=== PATIENT | male | born 1985 | race Caucasian/White ===

== ENCOUNTER 2017-12-29 11:02 | Inpatient (IN) | payer MEDICAID ==
[2017-12-29] MEDS ORDERED: NS 1,000 ML IV ONE (11:58)
[2017-12-29] MEDS ORDERED: VANCOMYCIN 1.25 GM in NS 250 ML IV ONE (13:24)
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
[2017-12-29] MEDS ORDERED: ACETAMINOPHEN 325 MG TAB PO ONE (13:57)
[2017-12-29] MEDS ORDERED: IBUPROFEN 600 MG TAB PO ONE (13:58)
[2017-12-29] MEDS: VANCOMYCIN 1 GM in NS 250 ML IV ONE ×2 (14:43→14:48)
[2017-12-29] MEDS ORDERED: ONDANSETRON 4 MG/2 ML VIAL IVP PRN (16:17)
[2017-12-29] MEDS ORDERED: ACETAMINOPHEN 325 MG TAB PO PRN (16:17)
[2017-12-29] MEDS ORDERED: ONDANSETRON DISINTEGRATING 4 MG TAB PO PRN (16:17)
[2017-12-29] MEDS ORDERED: ALTEPLASE 2 MG VIAL IVP PRN (16:34)
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
[2017-12-29] MEDS ORDERED: IBUPROFEN 600 MG TAB PO PRN (17:56)
[2017-12-29] MEDS ORDERED: LORazepam 1 MG TAB PO PRN (17:56)
[2017-12-29] MEDS: oxyCODONE IR 5 MG TAB PO PRN ×2 (17:58→22:45)
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
[2017-12-29] MEDS ORDERED: valACYclovir 500 MG TAB PO PRN (18:44)
[2017-12-29 19:21] LABS: HEPATITIS C ANTIBODY TOTAL REACTIVE (NEGATIVE); HIV TYPE 1 AND 2 NEGATIVE (NEGATIVE)
[2017-12-29] MEDS: D5W IV SCH (20:59)
[2017-12-29] MEDS: ACYCLOVIR IV SCH (20:59)
[2017-12-29] MEDS: GABAPENTIN 300 MG CAP PO SCH (21:05)
[2017-12-30] MEDS: ACYCLOVIR IV SCH ×3 (05:00→21:42)
[2017-12-30] MEDS: D5W IV SCH ×3 (05:00→21:42)
[2017-12-30] MEDS: oxyCODONE IR 5 MG TAB PO PRN ×2 (05:08→09:27)
--- NOTE | 2017-12-30 07:18 | PDMN ---
Medical Necessity Medical necessity: Pt meets IP criteria per MD; est los >2 mn for eval/tx of acute shingles infection; admit for further monitoring, IV Acyclovir & ID consult; hx recent LUE cellulitis, long-standing IV heroin abuse, MRSA; per H&P & order 12/29/17
[2017-12-30] MEDS: GABAPENTIN 300 MG CAP PO SCH ×2 (09:27→21:42)
[2017-12-30] MEDS: MULTIVITAMINS 1 EACH TAB PO SCH (09:28)
[2017-12-30] MEDS: ENOXAPARIN 40 MG/0.4 ML SYR SC SCH (10:44)
[2017-12-30] MEDS ORDERED: HYDROmorphONE/DILAUDID 1 MG/ML INJ IVP PRN (11:08)
[2017-12-30] MEDS ORDERED: BISACODYL 10 MG SUPP PR PRN (11:09)
[2017-12-30] MEDS ORDERED: LACTULOSE 20 GM/30 ML UDCUP PO PRN (11:09)
[2017-12-30] MEDS ORDERED: POLYETHYLENE GLYCOL 3350 17 GM PKT PO PRN (11:09)
[2017-12-30] MEDS ORDERED: MAGNESIUM HYDROXIDE 30 ML UDCUP PO PRN (11:09)
[2017-12-30] MEDS: HYDROmorphONE/DILAUDID 2 MG TAB PO PRN ×3 (11:27→21:41)
[2017-12-30] MEDS: SENNOSIDES/DOCUSATE SODIUM TAB PO SCH ×2 (11:28→21:42)
--- NOTE | 2017-12-30 13:14 | PCMIDPN ---
Assessment/Plan: Assessment: Vesicular rash central forehead with lesions not approximate to the eyes. Patient also has scattered lesions in the left naris and the right ear. Pain control is not very good at present. Hospitalist will increase pain medicine dosage. No change in appearance of rash at this point. PCRs are pending. Meanwhile continue IV acyclovir. Patient got a PICC line earlier today. Plan: 1. Continue IV acyclovir. 2. Follow appearance of facial rash. 3. Follow up on laboratory PCRs for VZV and HSV. 12/30/17 13:11 Subjective: Patient is resting comfortably in his hospital bed. His is at his bedside. He reports no fevers or chills. Pain control is marginal. Continues to have facial and periorbital swelling. Objective: Acyclovir # 2 Vital Signs Temp Pulse Resp BP Pulse Ox 36.5 C 90 18 140/92 H 98 12/30/17 09:21 12/30/17 09:21 12/30/17 09:21 12/30/17 09:21 12/30/17 09:21 Microbiology 12/29/17 14:50 Gram Stain - Final Face - Swab Laboratory Results 12/30/17 04:51 12/30/17 04:51 12/29/17 12/30/17 12/31/17 05:59 05:59 05:59 Intake Total 1500 Balance 1500 - Physical Exam General Appearance: WD/WN, alert, no apparent distress, thin, non-toxic EENT: other (Right ear pinna lesion. Left nares lesion.), No normal ENT inspection Respiratory: lungs clear, normal breath sounds, No respiratory distress Cardiac/Chest: regular rate, rhythm, No tachycardia Skin: normal color, warm/dry, No rash Neuro/Psych: alert, normal mood/affect, oriented x 3 ICD10 Worksheet Patient Problems: Problems Problem Status Onset Facial cellulitis Acute History of MRSA infection Acute IV drug abuse Acute
[2017-12-30] MEDS ORDERED: FLU VACC QS 2017-18 (3YR+)/PF 0.5 ML SYR (FLUARIX QUAD) IM ONE (14:00)
--- NOTE | 2017-12-30 16:27 | ASMTCMCOM ---
CM Note CM Note Notes: Pt here w/facial rash, receiving IV acyclovir. Pt has hx of IV drug abuse. Pt lives at home w/signif other. DC needs not clear yet. CM should offer resources for drug rehab prior to dc. Date Signed: 12/30/2017 04:26 PM Electronically Signed By:Calli Yee RN
--- NOTE | 2017-12-30 16:33 | HOSPPROG ---
Hospitalist Progress Note Assessment/Plan: Assessment: 32-year-old male presents with suspected disseminated HSV Plan: 1. Suspected disseminated HSV. Evidenced by vesicular lesions with erosions over the mid forehead, left nares, right ear, which are painful out of proportion to their appearance, highly suspicious for neuropathic pain from HSV -HSV and VZV currently both pending -discussed with Dr. Ethan Queen, he recommends ongoing treatment with IV acyclovir via PICC line and does not recommend ophthalmological evaluation at this time as the patient does not appear to have any ocular symptoms and the present time without said symptoms there would be no changes in current management -continue to monitor serum creatinine on IV acyclovir 2. IV drug use. Active, recent, currently monitoring for any signs of withdrawal -HIV negative, hepatitis C virus positive -patient will be unsafe to discharge from hospital with IV line, if patient attempts to leave AMA, remove PICC line 3. Hepatitis-C virus. Based on screening test, will defer to Infectious Disease whether we should get total viral count verses defer to the outpatient infectious disease setting 4. Facial pain. Adjust pain medication to oral and IV as needed Dilaudid, bowel regimen ordered Diet. Regular next prophylaxis. Low risk, SCDs Code. Full Disposition. Anticipated discharge uncertain, pending clinical improvement of above. Subjective: Patient reports ongoing uncontrolled pain on his face, not responding oxycodone appropriately Objective: Vital Signs Temp Pulse Resp BP Pulse Ox 36.7 C 82 18 137/89 H 94 12/30/17 16:15 12/30/17 16:15 12/30/17 16:15 12/30/17 16:15 12/30/17 16:15 Microbiology 12/29/17 14:50 Gram Stain - Final Face - Swab Laboratory Results 12/30/17 04:51 12/30/17 04:51 12/29/17 12/30/17 12/31/17 05:59 05:59 05:59 Intake Total 1500 Balance 1500 - Physical Exam Constitutional: chronically ill appearing, uncomfortable, No not in pain ( Moderate) Ears, Nose, Mouth, Throat: other (No oral lesions) Cardiovascular: regular rate and rhythym, no murmur, rub, or gallop, No edema Respiratory: no respiratory distress, no rales or rhonchi, clear to auscultation Gastrointestinal: normoactive bowel sounds, soft, non-tender abdomen, no palpable masses, No distension Skin: other (This a killer lesions with erosions on the central forehead, left nares, right ear, left-sided perioral) Neurologic: AAOx3, sensation intact bilaterally, CN II-XII Intact, No weakness Psychiatric: interacting appropriately, not anxious, not encephalopathic, thought process linear ICD10 Worksheet Patient Problems: Problems Problem Status Onset Facial cellulitis Acute IV drug abuse Acute History of MRSA infection Acute
[2017-12-31] MEDS: HYDROmorphONE/DILAUDID 2 MG TAB PO PRN ×6 (02:04→23:50)
[2017-12-31] MEDS: ACYCLOVIR IV SCH ×3 (06:15→22:05)
[2017-12-31] MEDS: D5W IV SCH ×3 (06:15→22:05)
[2017-12-31] MEDS: GABAPENTIN 300 MG CAP PO SCH ×2 (08:06→20:47)
[2017-12-31] MEDS: MULTIVITAMINS 1 EACH TAB PO SCH (08:06)
[2017-12-31] MEDS: ENOXAPARIN 40 MG/0.4 ML SYR SC SCH (08:06)
[2017-12-31] MEDS: SENNOSIDES/DOCUSATE SODIUM TAB PO SCH ×2 (08:06→22:05)
[2017-12-31 08:16] LABS: PLATELET COUNT 305 10^3/uL (150-400)
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
--- NOTE | 2017-12-31 11:43 | PCMIDPN ---
Assessment/Plan: #Likely shingles/VZV: --another day of IV acyclovir then DC on high dose Valtrex 1gm PO TID x 11 more days for total of 14 days. No signs of acyclovir toxicity with nl Cr and slightly elevated WBC --lesions crusted okay to DC airborn --awaiting HSV/VZV PCR #HCV: discussed lab results, recommended condom use with sex --HIV neg --VL pending #IVDU: discussed importance of support system for DC use meds acyclovir 800mg IV q8h #11/18 Subjective: pain associated w rash improved today Objective: Vital Signs Temp Pulse Resp BP Pulse Ox 36.6 C 84 16 136/86 H 98 12/31/17 09:03 12/31/17 09:03 12/31/17 09:03 12/31/17 09:03 12/31/17 09:03 Microbiology 12/29/17 14:50 Gram Stain - Final Face - Swab Laboratory Results 12/31/17 08:05 12/31/17 06:15 12/30/17 12/31/17 01/01/18 05:59 05:59 05:59 Intake Total 1500 2090 250 Balance 1500 2090 250 - Physical Exam General Appearance: alert, no apparent distress EENT: other (no conjunctival lesions), No scleral icterus, No conjunctival petechiae Respiratory: No accessory muscle use Skin: normal color, rash (crusted vesicular rash mid forhead V1, L nare V2, L cheek V3 and R ear V3, crosses midline, eyelid swelling much improved), signs of IVDA, No jaundice, No embolic lesions Neuro/Psych: alert, normal mood/affect, oriented x 3, No facial droop - Time Spent With Patient Time Spent with Patient: greater than 35 minutes ( present during prevention of HCV transmission discussion) Time Spent with Patient: Greater than 35 minutes spent on this patients care, greater than 50% of time spent counseling, educating, and coordinating care regarding the above mentioned plan. ICD10 Worksheet Patient Problems: Problems Problem Status Onset Facial cellulitis Acute History of MRSA infection Acute IV drug abuse Acute
[2017-12-31] MEDS ORDERED: HYDROmorphONE/DILAUDID 2 MG/ML INJ IVP PRN (15:30)
--- NOTE | 2017-12-31 17:28 | HOSPPROG ---
Hospitalist Progress Note Assessment/Plan: Assessment: 32-year-old male presents with suspected disseminated HSV Plan: 1. Suspected disseminated HSV. Evidenced by vesicular lesions with erosions over the mid forehead, left nares, right ear, which are painful out of proportion to their appearance, highly suspicious for neuropathic pain from HSV -HSV and VZV currently both pending -discussed with Dr. Amber Cavazos, she recommends additional 24hrs IV acyclovir, then 11 subsequent days of valacyclovir 1000mg tid -gabapentin to reduce neuropathic pain 2. IV drug use. Active, recent, currently monitoring for any signs of withdrawal -HIV negative, hepatitis C virus positive -patient will be unsafe to discharge from hospital with IV line, if patient attempts to leave AMA, remove PICC line 3. Hepatitis-C virus. Viral load pending, f/u ID clinic 4. Facial pain. Adjusted pain medication to oral and IV as needed Dilaudid, bowel regimen ordered Diet. Regular next prophylaxis. Low risk, SCDs Code. Full Disposition. Anticipated discharge 01/01, pending improvement of above. Subjective: patient reports pain well controlled on current regimen Objective: Vital Signs Temp Pulse Resp BP Pulse Ox 36.8 C 82 18 149/95 H 98 12/31/17 15:41 12/31/17 15:41 12/31/17 15:41 12/31/17 15:41 12/31/17 15:41 Microbiology 12/29/17 14:50 Gram Stain - Final Face - Swab Wound Culture - Final Laboratory Results 12/31/17 08:05 12/31/17 06:15 12/30/17 12/31/17 01/01/18 05:59 05:59 05:59 Intake Total 1500 2090 250 Balance 1500 2090 250 - Pending Discharge Pending Discharge Within 24 Hours: Yes Pending Discharge Date: 01/01/18 Pending Discharge Time: 11:00 - Physical Exam Constitutional: no apparent distress, appears nourished, not in pain, uncomfortable Eyes: other (less infraorbital edema) Cardiovascular: regular rate and rhythym, no murmur, rub, or gallop, No edema Respiratory: no respiratory distress, no rales or rhonchi, clear to auscultation Gastrointestinal: normoactive bowel sounds, soft, non-tender abdomen, no palpable masses, No distension Skin: abrasion (LUE and chest w/ minimal surrounding erythema, central ulceration), other (crusting of lesions on forehead and periorally w/o surrounding erythema) Neurologic: AAOx3 Psychiatric: interacting appropriately, not anxious, not encephalopathic, thought process linear ICD10 Worksheet Patient Problems: Problems Problem Status Onset Facial cellulitis Acute IV drug abuse Acute History of MRSA infection Acute
[2018-01-01] MEDS: D5W IV SCH (05:23)
[2018-01-01] MEDS: ACYCLOVIR IV SCH (05:23)
[2018-01-01] MEDS: HYDROmorphONE/DILAUDID 2 MG TAB PO PRN ×2 (05:28→09:43)
[2018-01-01 05:35] VITALS: RESP 18
[2018-01-01 06:59] LABS: PLATELET COUNT 275 10^3/uL (150-400)
[2018-01-01] MEDS: SENNOSIDES/DOCUSATE SODIUM TAB PO SCH (09:42)
[2018-01-01] MEDS: MULTIVITAMINS 1 EACH TAB PO SCH (09:43)
[2018-01-01] MEDS: GABAPENTIN 300 MG CAP PO SCH (09:43)
[2018-01-01] MEDS: ENOXAPARIN 40 MG/0.4 ML SYR SC SCH (10:09)
[2018-01-01 10:39] VITALS: BP 142/85; PULSE 95; TEMP 98.4; O2SAT 95
--- NOTE | 2018-01-01 14:50 | ASMTCMCOM ---
CM Note CM Note Notes: Today Harleen worked with Pt. on his discharge. Met w/ Pt. several times in the room. Provided a letter for Pt. (see chart) explaining the duration of his hospitalization and that he should not return to work until Thursday 01/04. signed. Arranged for Medicaid transport home - [facility] # [id number], Medicaid # [id number]. Pt. grateful for assistance. D/c'ed independently. Date Signed: 01/01/2018 02:49 PM Electronically Signed By:Tiera Kingsley LCSW
--- NOTE | 2018-01-01 16:40 | PDDCSUM ---
Discharge Summary Discharge Summary: DISCHARGE SUMMARY FOLLOW-UP ITEMS: Reassess skin lesions DATE OF ADMISSION: 12/29/2017 DATE OF DISCHARGE: 01/01/2018 DISCHARGE DIAGNOSES: 1. Acute HSV 1 disseminated 2. IV drug use 3. Hepatitis-C virus new diagnosis 4. Acute facial pain CONSULTATIONS: Infectious Disease PROCEDURES / IMAGING: None CHIEF COMPLAINT: Acute face pain SUBJECTIVE: Patient reports that his pain is well managed with the current pain medications PHYSICAL EXAM ON DISCHARGE: Systolic blood pressure is 120-140, facial lesions have begun to crust over and appear dry, patient is not anxious or actively withdrawing, the patient continues to have some crusted lesions in the bilateral corners of his mouth, left nares, some infraorbital edema, but improved from day prior LABS ON DISCHARGE: White blood cell count 03531, hemoglobin 13.4, creatinine 0.8, potassium 4.5 HOSPITAL COURSE BY PROBLEM: The patient presented with painful lesions secondary to disseminated HSV 1 infection with the predominant lesions in the mid central scalp with smaller lesions in the left naris, bilateral corners of the mouth, and he was initiated on IV acyclovir and IV fluids. The area was swabbed in confirmed HSV 1. When the lesions began to dry and crusted over, the patient was transitioned to [place] acyclovir and will continue 1000 mg q.8 hours for 11 subsequent days. He will follow up with the [facility] for reassessment in approximately 2 weeks. He received as needed Dilaudid for pain control, and he will receive a limited supply, with counseling provided to the patient given his recent, active IV drug use. I am providing patient with this pain medication so that he does not feel like he needs to illicitly obtained heroin or injection drugs, and so that he can appropriately treat his ongoing pain. We have also prescribed gabapentin 300 mg twice daily to reduce post herpetic neuralgia. He can also continue Tylenol and ibuprofen as needed. He has a new diagnosis of hepatitis C virus any should follow up with the Infectious Disease Clinic to consider treatment. DISCHARGE MEDICATIONS: Please see official discharge medication reconciliation sheet in chart , valacyclovir 1000 mg q.8 hours times 11 subsequent days, gabapentin 300 mg twice daily for 1 month, as needed Dilaudid 2 mg, 10 tabs prescribed. DISCHARGE INSTRUCTIONS: Please follow up with the Infectious Disease Clinic in 2 weeks. TIME SPENT: Greater than 30 minutes were spent on direct patient care, as well as discharge planning and preparation.
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
== END 2018-01-01 12:51 | disposition home or self-care (01) | DRG 866 ==
LOC: CED 11:02 → CEDHOLD 13:39 → F1N 15:51
PROVIDERS: ADMIT Internal Medicine; ATTEND Internal Medicine
PROC: 02HV33Z Insertion of Infusion Device into Superior Vena Cava, Percutaneous Approach (ICD-10-PCS; principal; 2017-12-30)
DX: B02.7 Disseminated zoster (principal); F11.10 Opioid abuse, uncomplicated; B19.20 Unspecified viral hepatitis C without hepatic coma; Z86.14 Personal history of Methicillin resistant Staphylococcus aureus infection; L03.114 Cellulitis of left upper limb
CPT/HCPCS: 87529-90; 96365; 96366; C1751; G0008; G0472; J0133; J1650; J3370